=== PATIENT | male | born 1975 | race Caucasian/White ===

== ENCOUNTER 2018-06-22 23:14 | Emergency (ER) | payer OTHER, SELFPAY ==
[2018-06-22 23:15] VITALS: BP 132/89; PULSE 74; RESP 18; TEMP 36.8; O2SAT 96; BMI 25.0
[2018-06-23 00:01] VITALS: BP 124/80; PULSE 60; RESP 20; O2SAT 96
--- NOTE | 2018-06-23 00:59 | ED.DCSUM_ITS ---
- ER Visit Summary Date of Service: 06/23/18 Chief Complaint: Nausea, vomiting and diarrhea History of Present Illness: The patient is a 42 M no see a past medical history. No prior abdominal surgeries. Patient states since Saturday he has had nausea, vomiting and diarrhea. The diarrhea has since resolved. States when he eats he gets right chest discomfort and then throws up almost immediately. Daughter at home with similar symptoms is since resolved. Physical Examination: Vital signs are stable. Afebrile. Pulse ox 96% on room air no hypoxia. HEENT exam moist weeks membranes. Posterior pharynx normal. Neck nontender. No lymphadenopathy. Lungs clear to auscultation bilaterally. Heart regular rhythm no murmur. Abdomen is soft and nontender. Normal bowel sounds no peritoneal signs. Both the right upper and right lower quadrants are completely nontender. Nondistended and soft. Patient is moving all 4 extremities. Back is nontender. Neurologically is awake and alert with no focal deficits. Test Results: Labs were normal including a CBC with differential, BMP, hepatic panel and lipase. Emergency Department Course and Treatment: Clinically the patient is a viral syndrome. Treated with IV fluids and Zofran. P.o. fluid challenge. Repeat exam at 01:20 patient is doing well. Abdomen is benign. We will try a p.o. fluid challenge if he passes a be discharged home with Zofran home pack. I went over all test results of both he and his . Treatment Plan: Fluids and rest. Increase diet slowly. Return if worse. Follow-up if not improving. Zofran home pack Disposition: Discharge Impression: Acute viral gastroenteritis This note was generated with [employer] dictation software. It may contain incorrect words, spelling, and punctuation that were not noted in review of the chart prior to signing ED Disposition - Plan for ED Patient: Referrals: Care Physician,No Primary [Primary Care Provider] -
[2018-06-23] MEDS: 0.9% Normal Saline 1,000 ML 1000 ML IV (01:03)
[2018-06-23] MEDS: Ondansetron 4 MG/2 ML Vial IV (01:06)
[2018-06-23 01:07] LABS: Absolute Lymphocyte Count 1.72 X10^3/ul (0.83-4.51); Absolute Neutrophil Count 3.5 X10^3/uL (2.0-7.7); Basophil# 0.03 X10^3/uL; Basophil% 0.5 % (0-1); Eosinophil# 0.14 X10^3/uL; Eosinophils% 2.3 % (0-5); Hematocrit 43.7 % (40-54); Lymphocyte # 1.72 X10^3/ul (4.0); Lymphocyte % 28.5 % (19-41); Mean Corp Hgb Conc 34.3 g/gl (32-36); Mean Corpuscular Hgb 30.5 pg (27.0-32.0); Mean Platelet Vol. 9.8 fl (6.2-12.0); Monocyte# 0.66 X10^3/uL; Monocyte% 10.9 % (0-10); Neutrophil # 3.47 X10^3/uL (2.7-7.7); Neutrophil % 57.6 % (47-70); Platelet Count 274 K/mm3 (150-450); RBC Distribution Width CV 11.9 % (11.6-14.6); RBC Distribution Width SD 38.4 fl (35.1-43.9); Red Blood Count 4.91 M/mm3 (4.6-6.2)
[2018-06-23 01:08] LABS: POSITIVE COUNT NO; POSITIVE DIFFERENTIAL NO; POSITIVE MORPHOLOGY NO
[2018-06-23 01:18] LABS: BUN 9 mg/dL (7-18); Creatinine, Serum 1.06 mg/dL (0.70-1.30); Glucose 91 mg/dL (74-106)
[2018-06-23 01:19] LABS: AST(SGOT) 19 U/L (15-37); Alanine Aminotransfer ALT/SGPT 23 U/L (16-61); Albumin, Serum 4.1 g/dL (3.2-5.0); Alkaline Phosphatase 85 U/L (45-117); Anion Gap 6 (5-15); BUN/Creat Ratio 8.5 RATIO (10-20); Calcium,Total 8.6 mg/dL (8.5-10.1); Chloride 105 mmol/L (98-107); EST Glomerular Filtration Rate 81 mL/min (>60); Est Glom Filt Rate - Afr Amer 98 mL/min (>60); Estimated Creatinine Clearance 89.86 ml/min; Globulin 3.3 g/dL (2.2-4.2); Lipase 144 U/L (73-393); Potassium 3.7 mmol/L (3.5-5.1); Protein, Total 7.4 g/dL (6.4-8.2); Sodium Level 137 mmol/L (136-145)
--- NOTE | 2018-06-23 01:27 | ED.DEP ---
ED Disposition - Plan for ED Patient: Disposition: Home or Assisted Living Instructions: ED Gastroenteritis Viral Referrals: Woo Clay MD [STAFF PHYSICIAN] - 3-5 Days if not improving Additional Instructions: Plenty fluids and rest. Increase diet as tolerated. Zofran as needed for nausea. Follow-up if not improving return to the ER feeling worse.
[2018-06-23 01:37] VITALS: BP 123/81; PULSE 57; O2SAT 98
[2018-06-23] MEDS: Ondansetron ODT 4 MG Tablet PO (01:37)
== END 2018-06-23 01:39 | disposition home or self-care (01) ==
PROVIDERS: Emergency Provider Emergency Medicine
DX: A08.4 Viral intestinal infection, unspecified (principal)
CPT/HCPCS: 80048; 80076; 83690; 85025; 96374; 99283; J7030; A4216; J2405